=== PATIENT | male | born 1950 | race Two or more races ===

== ENCOUNTER 2025-07-16 07:22 | Emergency (ER) | payer BC, MEDICAID ==
[~2025-07-16 07:22] MED LIST: ASPI-1160 PO; HYDR100T31 PO; LEVO75TA7 PO; LIP40 PO; LOSA50TA41 PO; METO25TA6 PO; NIFE90TA60 MT
[2025-07-16 09:01] LABS: BASOPHILS % 0.7 % (0.0-2.0); EOSINOPHILS % 1.4 % (0.0-5.0); HEMATOCRIT. 37.9 % (42.0-52.0); HEMOGLOBIN. 12.3 g/dL (14.0-18.0); LYMPHOCYTES % 18.1 % (20.0-50.0); MEAN PLATELET VOLUME 9.3 fl (7.4-10.4); MONOCYTES % 5.5 % (2.0-8.0); NEUTROPHILS % 74.3 % (40.0-76.0); PLATELET 198 x1000/uL (130-400); RED BLOOD CELL COUNT 4.10 mill/uL (4.7-6.1); RED CELL DISTRIBUTION WIDTH 14.1 % (11.6-14.6)
[2025-07-16 09:25] LABS: CREATININE 1.3 mg/dL (0.6-1.3); TROPONIN I HIGH SENSITIVITY 14 ng/L (3.0-53); UREA NITROGEN BLOOD 13.0 mg/dL (9-23)
[2025-07-16 09:59] VITALS: BP 155/69; PULSE 64; RESP 16; O2SAT 98
== END 2025-07-16 10:00 | disposition home or self-care (01) ==
LOC: ER 08:22
DX: I10 Essential (primary) hypertension (principal); E03.9 Hypothyroidism, unspecified; Z79.899 Other long term (current) drug therapy; Z79.82 Long term (current) use of aspirin; Z98.890 Other specified postprocedural states
CPT/HCPCS: 36415; 80048; 84484; 85025; 93005; 99284